=== PATIENT | female | born 1980 | race Caucasian/White ===

== ENCOUNTER 2019-06-26 15:37 | Emergency (ER) | payer MEDICAID ==
[2019-06-26 15:51] VITALS: BP 141/93
--- NOTE | 2019-06-26 15:56 | ED Physician Documentation ---
History of Present Illness - Stated complaint Stated Complaint: FEMALE - Chief complaint Chief Complaint: Abd Pain - History obtained from History obtained from: Patient - History of Present Illness Timing: How many weeks ago (1) Pain level max: 3 Pain level now: 0 - Additonal information Additional information: 38-year-old female presents to the emergency department stating that she has had dysuria for the past week. This improves with Azo, but when the Azo was stopped, the symptoms return. Has seen some blood in the urine as well. No fevers. No abdominal pain or back pain. No vaginal bleeding or discharge. Patient denies any possibility of . She is not breast-feeding. Review of Systems Constitutional: denies: Fever, Chills PD PAST MEDICAL HISTORY - Past Medical History Past Medical History: No - Past Surgical History Past Surgical History: No - Present Medications Home Medications: Ambulatory Orders Medication Instructions Recorded Confirmed Nitrofurantoin Monohyd/M-Cryst 100 mg PO BID #10 capsule 06/26/19 [Macrobid 100 mg Capsule] - Allergies Allergies/Adverse Reactions: Allergies Allergy/AdvReac Type Severity Reaction Status Date / Time No Known Drug Allergies Allergy Verified 06/26/19 15:51 - Living Situation Living Situation: reports: With family Living Arrangement: reports: At home - Social History Does the pt have substance abuse?: No - Family History Family history: reports: Non contributory PD ED PE NORMAL - Vitals Vital signs reviewed: Yes - General General: Alert and oriented X 3, No acute distress, Well developed/nourished - HEENT HEENT: Moist mucous membranes - Neck Neck: Supple, no meningeal sign - Cardiac Cardiac: RRR, Strong equal pulses - Respiratory Respiratory: No respiratory distress, Clear bilaterally - Abdomen Abdomen: Soft, Non tender, Non distended - Back Back: No CVA TTP, No spinal TTP - Derm Derm: Warm and dry - Extremities Extremities: No edema - Neuro Neuro: Alert and oriented X 3 - Psych Psych: Normal mood, Normal affect Results - Vitals Vitals: Vital Signs - 24 hr 06/26/19 15:45 Temperature 36.5 C Heart Rate 87 Respiratory 14 Rate Blood Pressure 141/93 H O2 Saturation 99 Oxygen O2 Source Room air PD MEDICAL DECISION MAKING - ED course Complexity details: reviewed results, re-evaluated patient, considered differential, d/w patient ED course: Patient with a UTI. We will place on antibiotics. She is well-appearing, nontoxic. Afebrile. Patient counseled regarding signs and symptoms for which I believe and urgent re-evaluation would be necessary. Patient with good understanding of and agreement to plan and is comfortable going home at this time This document was made in part using voice recognition software. While efforts are made to proofread this document, sound alike and grammatical errors may occur. Departure - Departure Disposition: Home, Self Care Clinical Impression: UTI (urinary tract infection) Qualifiers: Urinary tract infection type: acute cystitis Hematuria presence: with hematuria Qualified Code(s): N30.01 - Acute cystitis with hematuria Condition: Good Instructions: ED UTI Cystitis Female Follow-Up: your,doctor in 1 week [Other] Prescriptions: Nitrofurantoin Monohyd/M-Cryst [Macrobid 100 mg Capsule] 100 mg PO BID #10 capsule Comments: Follow-up with your doctor as needed for further care. Return if you worsen. Do not take the Azo more than 2 to 3 days as it can cause problems with your blood. Take all antibiotics until gone.
[2019-06-26] MEDS: NITROFURANTOIN MACRO 100 MG CAPSULE PO STA (16:07)
[2019-06-26 16:11] LABS: BILIRUBIN,URINE NEGATIVE (NEGATIVE); LEUKOCYTE ESTERASE, URINE MODERATE (NEGATIVE); OCCULT BLOOD,URINE TRACE-INTA (NEGATIVE); PH,URINE 7.5 PH (5.0-7.5)
[2019-06-26 16:22] LABS: CLARITY,URINE HAZY (CLEAR)
[2019-06-26 16:23] LABS: HCG UR QUAL NEGATIVE
[2019-06-26 16:24] LABS: AMORPHOUS SEDIMENT,UR Marked /LPF; BACTERIA,URINE None Seen /HPF (None Seen); RBC,URINE 0-5 /HPF (0-5); SQUAMOUS EPITHELIAL CELL,UR MOD Squamous (<= Few)
== END 2019-06-26 16:10 | disposition home or self-care (01) ==
LOC: ED 15:37
DX: N30.01 Acute cystitis with hematuria (principal)
CPT/HCPCS: 81001; 81025; 99283; A9270; 81003; 87086

== ENCOUNTER 2020-01-20 22:49 | Emergency (ER) | payer MEDICAID ==
--- NOTE | 2020-01-20 22:53 | ED Physician Documentation ---
PD HPI ABD PAIN - Stated complaint Stated Complaint: ABDOMINAL ISSUES - History obtained from History obtained from: Patient - History of Present Illness Timing - onset: How many days ago (4-5) Timing - details: Abrupt onset, Intermittant Pain level now: 6 Quality: Pain Location: Epigastric Radiation: Other (no radiation) Improved by: Other (no ameliorating factors) Worsened by: Eating Associated symptoms: Nausea. No: Fever, Vomiting, Diarrhea, Constipation Similar symptoms before: Has not had sx before Recently seen: Not recently seen Review of Systems Constitutional: reports: Reviewed and negative Cardiac: reports: Reviewed and negative Respiratory: reports: Reviewed and negative GI: reports: Abdominal Pain, Nausea. denies: Vomiting : denies: Dysuria, Frequency, Now EGA Musculoskeletal: denies: Back pain PD PAST MEDICAL HISTORY - Past Medical History Past Medical History: Yes Psych: Depression - Past Surgical History Past Surgical History: No - Present Medications Home Medications: Ambulatory Orders Medication Instructions Recorded Confirmed FLUoxetine [PROzac] 40 mg DAILY 01/20/20 01/20/20 Ondansetron Odt [Zofran] 4 mg TL Q6H PRN #10 tablet 01/21/20 - Allergies Allergies/Adverse Reactions: Allergies Allergy/AdvReac Type Severity Reaction Status Date / Time No Known Drug Allergies Allergy Verified 01/20/20 22:52 - Social History Does the pt smoke?: Yes Smoking Status: Current every day smoker Does the pt drink ETOH?: No Does the pt have substance abuse?: No - Immunizations Immunizations are current?: No - POLST Patient has POLST: No PD ED PE NORMAL - Vitals Vital signs reviewed: Yes - General General: Alert and oriented X 3, No acute distress, Well developed/nourished - HEENT HEENT: Moist mucous membranes - Neck Neck: Supple, no meningeal sign - Cardiac Cardiac: RRR, No murmur - Respiratory Respiratory: No respiratory distress, Clear bilaterally - Abdomen Abdomen: Normal bowel sounds, Soft, Non tender, Non distended - Derm Derm: Normal color, Warm and dry, No rash Results - Vitals Vitals: Vital Signs - 24 hr 01/20/20 01/21/20 01/21/20 22:52 00:56 02:00 Temperature 36.6 C 36.8 C 37.0 C Heart Rate 88 74 69 Respiratory 16 14 16 Rate Blood Pressure 140/100 H 128/80 149/90 H O2 Saturation 96 96 99 Oxygen O2 Source Room air - Labs Labs: Laboratory Tests 01/20/20 01/20/20 01/20/20 23:09 23:40 23:40 WBC 8.9 RBC 4.60 Hgb 14.4 Hct 42.5 MCV 92.4 MCH 31.3 H MCHC 33.9 RDW 11.9 L Plt Count 287 MPV 9.6 Neut # (Auto) 6.4 Lymph # (Auto) 2.0 [place] # (Auto) 0.5 Eos # (Auto) 0.1 Baso # (Auto) 0.0 Absolute Nucleated RBC 0.00 Nucleated RBC % 0.0 Sodium 136 Potassium 3.9 Chloride 102 Carbon Dioxide 26 Anion Gap 8.0 BUN 13 Creatinine 0.6 Estimated GFR (MDRD) 111 Glucose 109 H Calcium 9.4 Total Bilirubin 0.7 AST 24 ALT 33 Alkaline Phosphatase 43 Total Protein 7.4 Albumin 4.0 Globulin 3.4 Albumin/Globulin Ratio 1.2 Lipase 27 Urine Color YELLOW Urine Clarity CLEAR Urine pH 6.0 Ur Specific [place] >=1.030 H Urine Protein NEGATIVE Urine Glucose (UA) NEGATIVE Urine Ketones NEGATIVE Urine Occult Blood TRACE-LYSE Urine Nitrite NEGATIVE Urine Bilirubin NEGATIVE Urine Urobilinogen 0.2 (NORMAL) Ur Leukocyte Esterase NEGATIVE Ur Microscopic Review NOT INDICATED Urine Culture Comments NOT INDICATED Urine HCG, Qual NEGATIVE - Rads (name of study) RUQ US Radiology: Prelim report reviewed, See rad report PD MEDICAL DECISION MAKING - ED course Complexity details: reviewed results, re-evaluated patient, considered differential, d/w patient ED course: unremarkable w/u. patient reports feeling much improved after IV fluids, zofran, and toradol. possible gastritis vs PUD, encouraged to return if worse, f/u with PMD Departure - Departure Disposition: 01 Home, Self Care Clinical Impression: Abdominal pain Condition: Good Instructions: ED Abdominal Pain Unkn Cause Prescriptions: Ondansetron Odt [Zofran] 4 mg TL Q6H PRN #10 tablet PRN Reason: Nausea / Vomiting Comments: You should take an acid-blocking medication once per day for 2 weeks such as nexium or prilosec (also can try pepcid, although this is generally less effective). If your symptoms persist, your primary care provider might order other tests such as upper endoscopy. Discharge Date/Time: 01/21/20 02:15
[2020-01-20 23:12] LABS: BILIRUBIN,URINE NEGATIVE (NEGATIVE); GLUCOSE, URINE (UA) NEGATIVE (NEGATIVE); KETONES,URINE (UA) NEGATIVE (NEGATIVE); LEUKOCYTE ESTERASE, URINE NEGATIVE (NEGATIVE); NITRITE,URINE NEGATIVE (NEGATIVE); OCCULT BLOOD,URINE TRACE-LYSE (NEGATIVE); PROTEIN,URINE NEGATIVE (NEGATIVE); UROBILINOGEN,URINE 0.2 (NORMAL) E.U./dL (NORMAL)
[2020-01-20 23:13] LABS: CLARITY,URINE CLEAR (CLEAR)
[2020-01-20 23:14] LABS: HCG UR QUAL NEGATIVE
[2020-01-20] MEDS ORDERED: KETOROLAC 30 MG/ML VIAL IVP STA (23:34)
[2020-01-20] MEDS ORDERED: SODIUM CHLORIDE 0.9% 1,000 ML IV STA (23:34)
[2020-01-20] MEDS ORDERED: ONDANSETRON 4 MG/2 ML VIAL IVP STA (23:34)
[2020-01-20 23:47] LABS: BASOPHILS % (AUTO) 0.3 %; EOSINOPHILS # (AUTO) 0.1 10^3/uL (0.0-0.7); EOSINOPHILS % (AUTO) 0.8 %; HGB - HEMOGLOBIN 14.4 g/dL (12.0-16.0); MEAN CORPUSCULAR HEMOGLOBIN 31.3 pg (27.0-31.0); MEAN CORPUSCULAR HGB CONC 33.9 g/dL (32.0-36.0); MEAN CORPUSCULAR VOLUME 92.4 fL (81.0-99.0); MEAN PLATELET VOLUME 9.6 fL (7.9-10.8); MONOCYTES # (AUTO) 0.5 10^3/uL (0.0-1.0); MONOCYTES % (AUTO) 5.1 %; NEUTROPHILS # (AUTO) 6.4 10^3/uL (1.5-6.6); NEUTROPHILS % (AUTO) 71.5 %; PLT - PLATELET COUNT 287 10^3/uL (130-450); RED CELL DISTRIBUTION WIDTH 11.9 % (12.0-15.0); WHITE BLOOD COUNT 8.9 x10^3/uL (4.8-10.8)
[2020-01-20 23:58] LABS: ALBUMIN/GLOBULIN RATIO 1.2 (1.0-2.2); BILIRUBIN,TOTAL 0.7 mg/dL (0.2-1.0); CALCIUM 9.4 mg/dL (8.5-10.3); CREATININE 0.6 mg/dL (0.4-1.0); TOTAL PROTEIN 7.4 g/dL (6.7-8.2)
[2020-01-21 02:08] VITALS: BP 149/90
--- NOTE | 2020-01-21 08:54 | Ultrasound Report ---
PROCEDURE: Abdomen Limited INDICATIONS: abd. pain TECHNIQUE: Real-time focused scanning was performed of the abdomen, with image documentation. COMPARISON: None FINDINGS: Liver is normal in size. Liver has diffuse increased echogenicity. No focal hepatic mass lesions. Gallbladder sonographically normal. No gallstones. No gallbladder wall thickening with gallbladder wa ll measuring 1.9 mm. No pericholecystic fluid. No sonographic Darby sign. Biliary tree is nondilated. Common bile duct measures 5.6 mm. Head and body of pancreas are sonographically normal. Patellar not well-seen and cannot be evaluated. Right kidney is sonographically normal. IMPRESSION: 1. No sonographic evidence of cholelithiasis or cholecystitis. 2. Echogenic liver. Finding typically represents fatty infiltration, however the finding is nonspecif ic and other etiologies including hepatic cirrhosis can produce a similar appearance. Recommend corre lation with clinical and laboratory data. Reviewed by: Natalie Valadez MD, PhD on 01/21/2020 8:53 AM PST Approved by: Natalie Valadez MD, PhD on 01/21/2020 8:53 AM PST Station ID: [id number]
== END 2020-01-21 02:15 | disposition home or self-care (01) ==
LOC: ED 22:49
DX: R10.13 Epigastric pain (principal); R11.0 Nausea; F17.200 Nicotine dependence, unspecified, uncomplicated
CPT/HCPCS: 36415; 80053; 81001; 81003; 81025; 83690; 85025; 87086; 96374; 99284

== ENCOUNTER 2020-01-22 01:24 | Emergency (ER) | payer MEDICAID ==
--- NOTE | 2020-01-22 01:38 | ED Physician Documentation ---
PD HPI ABD PAIN - Stated complaint Stated Complaint: ABD PX - Chief complaint Chief Complaint: Abd Pain - History obtained from History obtained from: Patient - History of Present Illness Timing - onset: How many weeks ago (1) Timing - duration: Weeks (1) Timing - details: Gradual onset, Still present, Waxing and waning Quality: Cramping, Aching, Pain Location: Epigastric Radiation: Chest (esophageal area) Improved by: No: Eating Worsened by: Eating, Palpation. No: Breathing Associated symptoms: Nausea. No: Fever, Diarrhea, Constipation, Melena Similar symptoms before: Diagnosis (presumed gastritis versus ulcer from ED visit 2 days ago.) Recently seen: Emergency Dept (2 days ago for this same symptoms, with labs and RUQ U/S that were normal. Presumed Dx gastritis. Told to take OTC omeprazole and given Rx for Zofran. Pt states taking Omeprazole since yesterday and the Zofran did not help with nausea. Having increased pain in epigastric area, despite Tums.) Review of Systems Constitutional: denies: Fever, Chills Nose: denies: Rhinorrhea / runny nose, Congestion Throat: denies: Sore throat Respiratory: denies: Cough GI: reports: Abdominal Pain, Nausea. denies: Abdominal Swelling, Vomiting, Diarrhea, Bloody / black stool Skin: denies: Rash, Lesions Neurologic: denies: Generalized weakness, Near syncope PD PAST MEDICAL HISTORY - Past Medical History Cardiovascular: None Respiratory: None Neuro: None Endocrine/Autoimmune: None GI: None Psych: Depression - Past Surgical History Past Surgical History: No - Present Medications Home Medications: Ambulatory Orders Medication Instructions Recorded Confirmed FLUoxetine [PROzac] 40 mg DAILY 01/20/20 01/22/20 Ondansetron Odt [Zofran] 4 mg TL Q6H PRN #10 tablet 01/21/20 01/22/20 HYDROcod/ACETAM 5/325 [Pyrites 5/325] 1 ea PO Q6H PRN #15 tablet 01/22/20 Lidocaine Viscous 2% [Xylocaine 5 ml PO Q4H PRN #100 ml 01/22/20 Viscous 2%] Promethazine [Phenergan] 25 mg PO Q6H PRN #15 tab 01/22/20 - Allergies Allergies/Adverse Reactions: Allergies Allergy/AdvReac Type Severity Reaction Status Date / Time No Known Drug Allergies Allergy Verified 01/22/20 01:40 - Social History Does the pt smoke?: Yes Smoking Status: Current every day smoker Does the pt drink ETOH?: No Does the pt have substance abuse?: No - Immunizations Immunizations are current?: No - POLST Patient has POLST: No PD ED PE NORMAL - Vitals Vital signs reviewed: Yes - General General: Alert and oriented X 3, Well developed/nourished - Neck Neck: Supple, no meningeal sign, No adenopathy - Cardiac Cardiac: RRR, No murmur - Respiratory Respiratory: Clear bilaterally - Abdomen Abdomen: Normal bowel sounds, Soft, Non distended, No organomegaly, Other (tender epigastric area with mild guarding. No percussion tenderness nor rebound. Both LUQ and RUQ with mild tenderness. Lower abd not tender. ) Results - Vitals Vitals: Vital Signs - 24 hr 01/22/20 01/22/20 01:27 03:30 Temperature 36.8 C 37.1 C Heart Rate 73 72 Respiratory 18 14 Rate Blood Pressure 156/95 H 134/81 H O2 Saturation 96 95 Oxygen O2 Source Room air PD MEDICAL DECISION MAKING - ED course Complexity details: reviewed old records (ED visit from the 6th. ), re-evaluated patient (improved pain and nausea with IV meds (route chosen due to nausea already, so PO would not be as efficacious). ), considered differential, d/w patient Departure - Departure Disposition: 01 Home, Self Care Clinical Impression: Epigastric abdominal pain Acute gastritis Qualifiers: Gastritis type: unspecified gastritis Gastritis bleeding: without bleeding Qualified Code(s): K29.00 - Acute gastritis without bleeding Condition: Stable Record reviewed to determine appropriate education?: Yes Instructions: ED PUD Vs Gastritis Prescriptions: HYDROcod/ACETAM 5/325 [Pyrites 5/325] 1 ea PO Q6H PRN #15 tablet PRN Reason: Pain Promethazine [Phenergan] 25 mg PO Q6H PRN #15 tab PRN Reason: Nausea / Vomiting Lidocaine Viscous 2% [Xylocaine Viscous 2%] 5 ml PO Q4H PRN #100 ml PRN Reason: Pain Comments: Continue with the omeprazole to started. Take it daily. Use Tylenol if needed for pains. You can also use antacid such as Maalox or Mylanta and combine it with 5 mL of the lidocaine to help with stomach pains. Do not take any anti-inflammatories such as ibuprofen or naproxen as is could further irritate your stomach. Avoid alcohol caffeine in very spicy foods. Use the previous ondansetron for nausea or promethazine instead if the ondansetron is not working. Add Tylenol for pain or hydrocodone if needed for worse pain. I would anticipate improvement in your stomach with the above medicines and ge neral improvement in the pain over the next several days to week. Follow-up with your primary care in the next week, call for an appointment. Return to ER if worsened.
[2020-01-22] MEDS ORDERED: ONDANSETRON 4 MG/2 ML VIAL IVP STA (02:08)
[2020-01-22] MEDS ORDERED: SODIUM CHLORIDE 0.9% 1,000 ML IV STA (02:08)
[2020-01-22] MEDS ORDERED: FAMOTIDINE 20 MG/2 ML VIAL IVP STA (02:09)
[2020-01-22] MEDS ORDERED: LIDOCAINE VISCOUS 2% 15 ML UDC MM STA (02:09)
[2020-01-22] MEDS ORDERED: MAG HYDROX/AL HYDROX/SIMETH 30 ML UDC PO STA (02:09)
[2020-01-22] MEDS ORDERED: MORPHINE 10 MG/ML VIAL IVP STA (02:09)
[2020-01-22] MEDS ORDERED: HYDROcod/ACET 5/325 Prepack 4 PO STA (03:57)
[2020-01-22] MEDS ORDERED: ONDANSETRON ODT 4 MG Prepack 2 TL PRN (03:57)
[2020-01-22 04:21] VITALS: BP 120/78
== END 2020-01-22 04:21 | disposition home or self-care (01) ==
LOC: ED 01:24
DX: K29.00 Acute gastritis without bleeding (principal); F17.200 Nicotine dependence, unspecified, uncomplicated
CPT/HCPCS: 96374; 96375; 99283; 99284; A9270

== ENCOUNTER 2021-10-26 20:42 | Emergency (ER) | payer MEDICAID ==
[2021-10-26 20:49] VITALS: BP 133/88
[2021-10-26] MEDS ORDERED: ACETAMINOPHEN 325 MG TABLET PO STA (21:13)
[2021-10-26] MEDS ORDERED: KETOROLAC 30 MG/ML VIAL IM STA (21:14)
--- NOTE | 2021-10-26 21:16 | ED Physician Documentation ---
History of Present Illness - Stated complaint Stated Complaint: BODY ACHES,CLINT[place],FEVER - Chief complaint Chief Complaint: General - History obtained from History obtained from: Patient, Family (friend) - Additonal information Additional information: 41-year-old woman with no stated past medical history presents with headache, nausea, cough productive of clear sputum, body aches, and chills since last n ight. Patient states she has minimal improvement with ibuprofen headache is right frontal, radiating to the left, and a 10 in severity, intermittent since last night, gradual in onset.Denies vomiting, diarrhea, hemoptysis, shortness of breath, chest pain. Review of Systems Ten Systems: 10 systems reviewed and negative Constitutional: reports: Chills, Myalgias, Fatigue PD PAST MEDICAL HISTORY - Past Medical History Cardiovascular: None Respiratory: None Neuro: None Endocrine/Autoimmune: None GI: None Psych: Depression - Past Surgical History Past Surgical History: No - Present Medications Home Medications: Ambulatory Orders Medication Instructions Recorded Confirmed FLUoxetine [PROzac] 40 mg DAILY 01/20/20 01/22/20 Ondansetron Odt [Zofran] 4 mg TL Q6H PRN #10 tablet 01/21/20 01/22/20 HYDROcod/ACETAM 5/325 [[place] 5/325] 1 ea PO Q6H PRN #15 tablet 01/22/20 Lidocaine Viscous 2% [Xylocaine 5 ml PO Q4H PRN #100 ml 01/22/20 Viscous 2%] Promethazine [Phenergan] 25 mg PO Q6H PRN #15 tab 01/22/20 - Allergies Allergies/Adverse Reactions: Allergies Allergy/AdvReac Type Severity Reaction Status Date / Time No Known Drug Allergies Allergy Verified 10/26/21 20:46 - Social History Does the pt smoke?: Yes Smoking Status: Current every day smoker Does the pt drink ETOH?: No Does the pt have substance abuse?: No - Immunizations Immunizations are current?: No - POLST Patient has POLST: No PD ED PE NORMAL - Vitals Vital signs reviewed: Yes - General General: Alert and oriented X 3, No acute distress, Well developed/nourished - HEENT HEENT: Atraumatic, PERRL, EOMI - Neck Neck: Supple, no meningeal sign - Cardiac Cardiac: RRR - Respiratory Respiratory: No respiratory distress, Clear bilaterally - Abdomen Abdomen: Non tender, Non distended - Derm Derm: Normal color, Warm and dry - Extremities Extremities: No deformity - Neuro Neuro: Alert and oriented X 3, No motor deficit, No sensory deficit - Psych Psych: Normal mood, Normal affect Results - Vitals Vitals: Vital Signs - 24 hr 10/26/21 20:46 Temperature 37.1 C Heart Rate 100 Respiratory 22 Rate Blood Pressure 133/88 H O2 Saturation 99 Oxygen O2 Source Room air PD MEDICAL DECISION MAKING - ED course ED course: 41-year-old woman presents with flulike symptoms since yesterday. She is not COVID vaccinated. Declined COVID test. She is well-appearing. Offered analgesia And antinausea medication for symptom relief which she accepted. Work note provided. CLINTON improved to 07/24. will dc home with return precautions Departure - Departure Disposition: 01 Home, Self Care Clinical Impression: Headache, Body aches, Cough, Fever and chills Condition: Stable Instructions: ED Headache Tension Comments: You are seen in the emergency department for headache, body aches, chills, and cough. Please stay home and get lots of rest. Follow-up with your primary doctor. Return to the emergency department you have any new or worsening symptoms or other concerns. Forms: Activity restrictions
[2021-10-26] MEDS: METOCLOPRAMIDE 10 MG TABLET PO STA (21:26)
== END 2021-10-26 22:12 | disposition home or self-care (01) ==
LOC: ED 20:42
DX: R51.9 Headache, unspecified (principal); M79.10 Myalgia, unspecified site; R50.9 Fever, unspecified; F17.200 Nicotine dependence, unspecified, uncomplicated
CPT/HCPCS: 96372; 99282; 99283; A9270

== ENCOUNTER 2022-12-16 07:19 | Outpatient (CLI) | payer MEDICAID ==
[2022-12-16 12:24] LABS: BASOPHILS % (AUTO) 0.9 %; EOSINOPHILS # (AUTO) 0.2 10^3/uL (0.0-0.7); EOSINOPHILS % (AUTO) 4.2 %; HCT - HEMATOCRIT 39.6 % (37.0-47.0); HGB - HEMOGLOBIN 12.8 g/dL (12.0-16.0); LYMPHOCYTES # (AUTO) 1.4 10^3/uL (1.5-3.5); LYMPHOCYTES % (AUTO) 31.6 %; MEAN CORPUSCULAR HEMOGLOBIN 30.5 pg (27.0-31.0); MEAN CORPUSCULAR HGB CONC 32.3 g/dL (32.0-36.0); MEAN CORPUSCULAR VOLUME 94.5 fL (81.0-99.0); MONOCYTES # (AUTO) 0.3 10^3/uL (0.0-1.0); MONOCYTES % (AUTO) 7.1 %; NEUTROPHILS # (AUTO) 2.5 10^3/uL (1.5-6.6); NEUTROPHILS % (AUTO) 55.5 %; PLT - PLATELET COUNT 311 10^3/uL (130-450); RED BLOOD COUNT 4.19 10^6/uL (4.20-5.40); RED CELL DISTRIBUTION WIDTH 12.2 % (12.0-15.0); WHITE BLOOD COUNT 4.5 x10^3/uL (4.8-10.8)
[2022-12-16 12:38] LABS: ALBUMIN 3.9 g/dL (3.2-5.5); ALBUMIN/GLOBULIN RATIO 1.3 (1.0-2.2); ALKALINE PHOSPHATASE 48 IU/L (42-121); ALT ALANINE AMINOTRANSFERASE 16 IU/L (10-60); AST ASPARTATE AMINOTRANSFERASE 15 IU/L (10-42); BILIRUBIN,TOTAL 0.3 mg/dL (0.2-1.0); BUN - BLOOD UREA NITROGEN 14 mg/dL (6-20); CALCIUM 8.7 mg/dL (8.5-10.3); CARBON DIOXIDE - CO2 28 mmol/L (21-32); CHLORIDE 106 mmol/L (101-111); CHOL/HDL RATIO 3.1 (<4.4); CHOLESTEROL 151 mg/dL; CREATININE 0.6 mg/dL (0.6-1.3); GFR - MDRD 109 (>89); GLUCOSE 101 mg/dL (74-104); HDL CHOLESTEROL 48 mg/dL; LDL CHOLESTEROL,CALCULATED 83 mg/dL; LDL/HDL RATIO 1.7 (<4.4); POTASSIUM 4.3 mmol/L (3.5-4.5); SODIUM 137 mmol/L (135-145); TOTAL PROTEIN 6.9 g/dL (6.4-8.9); TRIGLYCERIDES 100 mg/dL (48-352); VLDL CHOLESTEROL 20 mg/dL
[2022-12-16 12:48] LABS: THYROID STIMULATING HORMONE 1.39 uIU/mL (0.34-5.60)
[2022-12-16 14:44] LABS: CHLAMYDIA TRACHOMATIS DNA NEGATIVE (NEGATIVE); NEISSERIA GONORRHOEAE DNA NEGATIVE (NEGATIVE); TRICHOMONAS VAGINALIS DNA NEGATIVE (NEGATIVE)
[2022-12-17 04:09] LABS: HCV AB Non Reactive (Non Reactive)
[2022-12-17 06:10] LABS: HIV SCREEN 4TH GENERATION Non Reactive (Non Reactive)
[2022-12-17 08:10] LABS: HSV 1 IGG TYPE SPEC <0.91 index (0.00-0.90); HSV 2 IGG TYPE SPEC 7.33 index (0.00-0.90); RPR Non Reactive (Non Reactive)
== END 2022-12-16 07:20 | disposition home or self-care (01) ==
LOC: LAB.N 07:19
PROVIDERS: ATTEND Physician Assistant
DX: I10 Essential (primary) hypertension (principal); Z20.2 Contact with and (suspected) exposure to infections with a predominantly sexual mode of transmission; Z13.220 Encounter for screening for lipoid disorders
CPT/HCPCS: 36415; 80053; 80061; 83721; 84443; 85025; 86592; 86695; 86696; 86803; 87389; 87491; 87591; 87661

== ENCOUNTER 2023-01-26 15:49 | Outpatient (CLI) | payer MEDICAID ==
--- NOTE | 2023-01-26 17:25 | Ultrasound Report ---
PROCEDURE: Pelvic w/Transvaginal INDICATIONS: ENLARGED UTERUS TECHNIQUE: Real-time scanning was performed of the pelvic organs, with image documentation. Additional endovagi nal scanning was necessary due to incomplete visualization of the adnexal and endometrial structures by transabdominal scanning. COMPARISON: None. FINDINGS: Uterus: Uterus is anteverted and normal in size at 11.6 x 6.0 x 6.9 cm. The myometrium is heterogen eous. The endometrium measures 10.4 mm in combined thickness. Subserosal midline anterior fibroid m easuring 1.7 x 1.6 x 2.6 cm. Ovaries: The right ovary measures 2.3 x 1.8 x 2.6 cm, with a calculated ovarian volume of 5.7 cc. T he left ovary measures 4.4 x 3.0 x 4.1 cm, with a calculated ovarian volume of 28.1 cc. The ovaries have a normal sonographic appearance. Less than 12 follicles can be seen in each ovary. No adnexal masses are seen. There is a left ovarian cyst measuring 2.5 x 3.0 x 3.4 cm. Other: No pathologic free abdominal or pelvic fluid. IMPRESSION: 1. 2.6 cm maximum diameter uterine fibroid. 2. 3.4 cm left ovarian cyst. Reviewed by: Musa Carlson MD on 01/26/2023 5:23 PM PST Approved by: Musa Carlson MD on 01/26/2023 5:23 PM PST Station ID: [id number]
== END 2023-01-26 15:50 | disposition home or self-care (01) ==
LOC: DI 15:49
PROVIDERS: ATTEND Obstetrics & Gynecology
DX: D25.2 Subserosal leiomyoma of uterus (principal); N83.202 Unspecified ovarian cyst, left side

== ENCOUNTER 2023-04-12 09:31 | Outpatient (CLI) | payer MEDICAID ==
--- NOTE | 2023-04-13 09:43 | Mammography Report ---
BILATERAL DIGITAL SCREENING MAMMOGRAM 3D/2D: 04/12/2023 CLINICAL: Baseline exam. Routine screening. No prior exams were available for comparison. There are scattered areas of fibroglandular density in both breasts (category b / 25%-50% glandular t issue). No significant masses, calcifications, or other findings are seen in either breast. IMPRESSION: NEGATIVE There is no mammographic evidence of malignancy. A 1 year screening mammogram is recommended. Based on the Tyrer Cuzick model (a risk assessment model) the patient's lifetime risk is 6.9% and her 10 year risk is 1.1%. According to the ACR, ACS, and NCCN guidelines, an annual breast MRI exam clif[place] g with mammogram is recommended if the patient's lifetime risk is 20% or greater. This exam was interpreted at Station ID: [id number]. NOTE: For mammograms, a report in lay terms will be sent to the patient. Approximately 15% of breast malignancies will not be visualized mammographically. In the management of a palpable breast mass, a negative mammogram must not discourage biopsy of a clinically suspicious lesion. Electronically Signed By: Isael contreras/[email or web address]:04/12/2023 12:30:17 letter sent: No_Letter ACR BI-RADS Category 1: Negative 3341F PARENCHYMAL PATTERN: (A) - The breast(s) demonstrate(s) scattered fibroglandular densities. BI-RADS CATEGORY: (1) - 1 Mammogram [id number] 1 year screening LATERALITY: (B)
== END 2023-04-12 09:32 | disposition home or self-care (01) ==
LOC: DI.N 09:31
DX: Z12.31 Encounter for screening mammogram for malignant neoplasm of breast (principal); R92.323 Mammographic fibroglandular density, bilateral breasts

== ENCOUNTER 2023-10-31 05:29 | Outpatient (CLI) | payer MEDICAID ==
[2023-10-31 05:48] LABS: BASOPHILS % (AUTO) 0.5 %; EOSINOPHILS # (AUTO) 0.2 10^3/uL (0.0-0.7); EOSINOPHILS % (AUTO) 4.3 %; HCT - HEMATOCRIT 42.9 % (37.0-47.0); HGB - HEMOGLOBIN 13.9 g/dL (12.0-16.0); LYMPHOCYTES % (AUTO) 35.1 %; MEAN CORPUSCULAR HEMOGLOBIN 30.3 pg (27.0-31.0); MEAN CORPUSCULAR HGB CONC 32.4 g/dL (32.0-36.0); MEAN CORPUSCULAR VOLUME 93.5 fL (81.0-99.0); MEAN PLATELET VOLUME 9.1 fL (7.9-10.8); MONOCYTES # (AUTO) 0.4 10^3/uL (0.0-1.0); MONOCYTES % (AUTO) 7.6 %; NEUTROPHILS # (AUTO) 2.9 10^3/uL (1.5-6.6); NEUTROPHILS % (AUTO) 52.3 %; PLT - PLATELET COUNT 308 10^3/uL (130-450); RED BLOOD COUNT 4.59 10^6/uL (4.20-5.40); RED CELL DISTRIBUTION WIDTH 12.9 % (12.0-15.0); WHITE BLOOD COUNT 5.6 x10^3/uL (4.8-10.8)
[2023-10-31 06:05] LABS: ALBUMIN 3.7 g/dL (3.2-5.5); ALBUMIN/GLOBULIN RATIO 1.4 (1.0-2.2); ALKALINE PHOSPHATASE 53 IU/L (42-121); ALT ALANINE AMINOTRANSFERASE 16 IU/L (10-60); AST ASPARTATE AMINOTRANSFERASE 13 IU/L (10-42); BILIRUBIN,TOTAL 0.2 mg/dL (0.2-1.0); BUN - BLOOD UREA NITROGEN 11 mg/dL (6-20); CALCIUM 9.1 mg/dL (8.5-10.3); CARBON DIOXIDE - CO2 30 mmol/L (21-32); CHLORIDE 104 mmol/L (101-111); CHOL/HDL RATIO 3.7 (<4.4); CHOLESTEROL 161 mg/dL; CREATININE 0.7 mg/dL (0.6-1.3); GFR - MDRD 91 (>89); GLUCOSE 101 mg/dL (74-104); HDL CHOLESTEROL 43 mg/dL; LDL CHOLESTEROL,CALCULATED 97 mg/dL; LDL/HDL RATIO 2.3 (<4.4); POTASSIUM 4.1 mmol/L (3.5-4.5); SODIUM 137 mmol/L (135-145); TOTAL PROTEIN 6.4 g/dL (6.4-8.9); TRIGLYCERIDES 104 mg/dL; VLDL CHOLESTEROL 21 mg/dL
[2023-10-31 06:18] LABS: THYROID STIMULATING HORMONE 3.03 uIU/mL (0.34-5.60)
== END 2023-10-31 05:30 | disposition home or self-care (01) ==
LOC: LAB 05:29
PROVIDERS: ATTEND Physician Assistant
DX: I10 Essential (primary) hypertension (principal); Z13.220 Encounter for screening for lipoid disorders
CPT/HCPCS: 36415; 80053; 80061; 83721; 84443; 85025